=== PATIENT | female | born 1960 | race Two or more races ===

== ENCOUNTER 2016-08-27 17:14 | Emergency (ER) | payer MEDICARE, MEDICAID ==
[~2016-08-27] VITALS: Ht 152.4 cm; Wt 79.4 kg
[2016-08-27] MEDS ORDERED: EPINEPHrine HCL 1 MG/1 ML AMP SC ONE (19:30)
[2016-08-27] MEDS ORDERED: diphenhdrAMINE HCL 50 MG/1 ML VL IM ONE (19:30)
[2016-08-27 19:53] VITALS: BP 140/92
== END 2016-08-27 19:59 | disposition home or self-care (01) ==
LOC: ER 17:16
DX: T78.40XA Allergy, unspecified, initial encounter (principal); X58.XXXA Exposure to other specified factors, initial encounter
CPT/HCPCS: 96372; 99284; J0171; J1200

== ENCOUNTER 2017-05-06 08:38 | Emergency (ER) | payer MEDICARE, MEDICAID ==
[~2017-05-06] VITALS: Ht 149.9 cm; Wt 78.0 kg
[2017-05-06 09:30] VITALS: BP 143/92
[2017-05-06] MEDS ORDERED: cefTRIAXone SOD 1,000 MG VL IM ONE (10:15)
== END 2017-05-06 10:33 | disposition home or self-care (01) ==
LOC: ER 08:38
DX: S60.361A Insect bite (nonvenomous) of right thumb, initial encounter (principal); T81.4XXA Infection following a procedure, initial encounter; L08.9 Local infection of the skin and subcutaneous tissue, unspecified; W57.XXXA Bitten or stung by nonvenomous insect and other nonvenomous arthropods, initial encounter; Y93.89 Activity, other specified; Y99.8 Other external cause status; Y92.89 Other specified places as the place of occurrence of the external cause
CPT/HCPCS: 96372; 99283; J0696

== ENCOUNTER 2020-02-11 11:33 | Emergency (ER) | payer OTHER, MEDICAID ==
[~2020-02-11] VITALS: Ht 149.9 cm; Wt 71.7 kg
[2020-02-11 15:57] VITALS: BP 128/87
[2020-02-11] MEDS ORDERED: cefTRIAXone SOD 1,000 MG VL IM ONE (17:00)
[2020-02-11] MEDS ORDERED: LIDOCAINE 1% HCL (LOCAL ANESTH.) INJ 20ML MDV IJ ONE (17:00)
[2020-02-11] MEDS ORDERED: ACETAMINOPHEN/CODEINE#3 (300/30mg) TAB PO ONE (17:00)
[2020-02-11] MEDS ORDERED: TETANUS-DIPTH-ACEL PERTUSSIS 0.5ML SYR Tdap IM ONE (17:00)
== END 2020-02-11 18:18 | disposition home or self-care (01) ==
LOC: ER 11:33
DX: S01.511A Laceration without foreign body of lip, initial encounter (principal); S01.21XA Laceration without foreign body of nose, initial encounter; S01.81XA Laceration without foreign body of other part of head, initial encounter; W54.0XXA Bitten by dog, initial encounter; Y93.89 Activity, other specified; Y92.89 Other specified places as the place of occurrence of the external cause; Y99.8 Other external cause status
CPT/HCPCS: 12011; 90471; 90715; 96372; 99284; J0696; J2001

== ENCOUNTER 2020-02-18 10:49 | Emergency (ER) | payer OTHER, MEDICAID ==
[~2020-02-18] VITALS: Ht 149.9 cm; Wt 72.6 kg
[2020-02-18 12:33] VITALS: BP 135/91
== END 2020-02-18 12:40 | disposition home or self-care (01) ==
LOC: ER 10:49
DX: S01.551D Open bite of lip, subsequent encounter (principal); W54.0XXD Bitten by dog, subsequent encounter; F17.210 Nicotine dependence, cigarettes, uncomplicated

== ENCOUNTER 2021-11-17 12:16 | Inpatient (IN) | payer OTHER ==
[~2021-11-17] VITALS: Ht 144.8 cm; Wt 63.0 kg
[2021-11-17] MEDS ORDERED: ALUM & MAG HYDROX-SIMETH LIQ(MAALOX) 30 ML PO ONE (12:45)
[2021-11-17] MEDS ORDERED: LIDOCAINE VISCOUS 2% 15ML UD PO ONE (12:45)
[2021-11-17] MEDS ORDERED: ONDANSETRON HCL 4 MG/2 ML VIAL IV ONE ×2 (12:45→18:15)
[2021-11-17] MEDS ORDERED: FAMOTIDINE (10MG/ML) 2ML VL IV ONE (12:45)
[2021-11-17 13:43] LABS: Basophils # (auto) 0 10 ^3/uL (0-0.2); Basophils % (auto) 0.3 % (0.0-2.0); Eosinophils # (auto) 0 10 ^3/uL (0-0.8); Hematocrit 39.9 % (36.0-46.0); Hemoglobin 13.7 g/dL (12.2-16.2); Lymphocytes # (auto) 0.7 10 ^3/uL (0.4-5.4); Lymphocytes % (auto) 8.6 % (10.0-50.0); Mean Corpuscular Hemoglobin 33.9 pg (28.0-32.0); Mean Corpuscular Hgb Conc. 34.3 g/dL (32.0-36.0); Mean Corpuscular Volume 98.8 fL (80.0-100.0); Monocytes # (auto) 0.2 10 ^3/uL (0-1.3); Monocytes % (auto) 2.4 % (0.0-12.0); Neutrophils # (auto) 6.9 10 ^3/uL (1.6-8.6); Neutrophils % (auto) 88.7 % (37.0-80.0); Red Blood Cells 4.03 10^6/uL (4.0-5.20); Red Cell Distribution Width 14.3 % (11.8-14.3); White Blood Cell 7.8 10^3/uL (4.4-10.8)
[2021-11-17 14:04] LABS: BUN/Creatinine Ratio 13.1; Calcium 9.4 mg/dL (8.5-10.1); Magnesium 1.9 mg/dL (1.6-2.6); Potassium 3.9 mmol/L (3.5-5.1)
[2021-11-17 14:06] LABS: Bilirubin, Total 0.4 mg/dL (0.2-1.0); Total Protein 8.5 g/dL (6.4-8.2)
[2021-11-17] MEDS ORDERED: ASPirin 81 mg TAB PO ONE (14:30)
[2021-11-17] MEDS ORDERED: METOCLOPRAMIDE HCL 5MG/ml INJ 2ml VIAL IV ONE (15:30)
[2021-11-17] MEDS ORDERED: MORPHINE SULFATE INJECTION 2 MG/ML SYRG IV ONE (15:30)
[2021-11-17] MEDS ORDERED: ERYTHROMYCIN LACTOBIONATE 250 MG in SODIUM CHL 0.9% 100 ML IV ONE (17:45)
[2021-11-17] MEDS ORDERED: LORazepam 2MG/ML-1ML VIAL IV ONE (17:45)
[2021-11-17] MEDS ORDERED: NITROGLYCERIN 0.4 MG SL TAB SL PRN (18:15)
[2021-11-17] MEDS ORDERED: ACETAMINOPHEN 325 MG TAB PO PRN (18:15)
[2021-11-17] MEDS ORDERED: MORPHINE SULFATE INJECTION 2 MG/ML SYRG IV PRN (18:15)
[2021-11-17] MEDS ORDERED: ONDANSETRON HCL 4 MG/2 ML VIAL IV PRN (18:15)
[2021-11-17 18:28] LABS: Urine Bacteria FEW /hpf (None Seen); Urine Blood TRACE /uL (Negative); Urine Mucus FEW (None Seen); Urine WBC 1 /hpf (0 - 5)
[2021-11-17 18:37] LABS: Urine Specific Gravity > 1.055 (1.001-1.035)
[2021-11-17] MEDS: SODIUM CHLORIDE 0.9% 1,000 ML IV SCH (18:52)
[2021-11-17] MEDS ORDERED: MORPHINE SULFATE 4 MG/ML SYR/VIAL IV PRN (22:15)
[2021-11-17 23:00] VITALS: BP 143/93
[2021-11-18] MEDS ORDERED: LOSA-69 PO (02:01)
[2021-11-18] MEDS ORDERED: ERGO1CAP12 PO (02:01)
[2021-11-18] MEDS ORDERED: ALBU108A5 INH (02:01)
[2021-11-18] MEDS: SODIUM CHLORIDE 0.9% 1,000 ML IV SCH ×2 (04:15→15:23)
[2021-11-18] MEDS: HYDROcodone-ACET 5/325MG TAB PO PRN (04:45)
[2021-11-18 05:03] VITALS: BP 146/83
[2021-11-18 05:50] LABS: Basophils # (auto) 0 10 ^3/uL (0-0.2); Basophils % (auto) 0.5 % (0.0-2.0); Eosinophils # (auto) 0.1 10 ^3/uL (0-0.8); Eosinophils % (auto) 0.7 % (0.0-7.0); Hematocrit 36.7 % (36.0-46.0); Hemoglobin 12.6 g/dL (12.2-16.2); Lymphocytes # (auto) 2.3 10 ^3/uL (0.4-5.4); Lymphocytes % (auto) 29.6 % (10.0-50.0); Mean Corpuscular Hemoglobin 33.8 pg (28.0-32.0); Mean Corpuscular Hgb Conc. 34.2 g/dL (32.0-36.0); Mean Corpuscular Volume 98.8 fL (80.0-100.0); Monocytes # (auto) 0.6 10 ^3/uL (0-1.3); Monocytes % (auto) 7.4 % (0.0-12.0); Neutrophils # (auto) 4.8 10 ^3/uL (1.6-8.6); Neutrophils % (auto) 61.8 % (37.0-80.0); Red Blood Cells 3.71 10^6/uL (4.0-5.20); Red Cell Distribution Width 14.2 % (11.8-14.3); White Blood Cell 7.8 10^3/uL (4.4-10.8)
[2021-11-18 06:05] LABS: Albumin 3.6 g/dL (3.4-5.0); Calcium 9.1 mg/dL (8.5-10.1); Potassium 3.5 mmol/L (3.5-5.1)
[2021-11-18 06:08] LABS: BUN/Creatinine Ratio 20.8; Bilirubin, Total 0.5 mg/dL (0.2-1.0); Total Protein 7.5 g/dL (6.4-8.2)
[2021-11-18 08:41] VITALS: BP 113/65
[2021-11-18] MEDS ORDERED: GASTROGRAFIN 120 ML SOL ONE (09:21)
[2021-11-18] MEDS: ENOXAPARIN SOD 40 MG/0.4 ML SYRINGE SC SCH (10:29)
[2021-11-18 12:47] VITALS: BP 122/70
[2021-11-18 16:44] VITALS: BP 138/70
[2021-11-18] MEDS: PANTOPRAZOLE 40 MG/10 ML VIAL INJ IV SCH (20:01)
[2021-11-18 21:10] VITALS: BP 143/76
[2021-11-19] MEDS: SODIUM CHLORIDE 0.9% 1,000 ML IV SCH ×2 (02:22→09:34)
[2021-11-19] MEDS: HYDROcodone-ACET 5/325MG TAB PO PRN ×2 (02:27→09:34)
[2021-11-19 05:00] VITALS: BP 134/72
[2021-11-19 05:50] LABS: Basophils # (auto) 0 10 ^3/uL (0-0.2); Basophils % (auto) 0.7 % (0.0-2.0); Eosinophils # (auto) 0.1 10 ^3/uL (0-0.8); Eosinophils % (auto) 2.1 % (0.0-7.0); Hematocrit 34.3 % (36.0-46.0); Hemoglobin 11.8 g/dL (12.2-16.2); Lymphocytes # (auto) 2.3 10 ^3/uL (0.4-5.4); Lymphocytes % (auto) 39.1 % (10.0-50.0); Mean Corpuscular Hgb Conc. 34.2 g/dL (32.0-36.0); Mean Corpuscular Volume 99.2 fL (80.0-100.0); Monocytes # (auto) 0.4 10 ^3/uL (0-1.3); Monocytes % (auto) 6.4 % (0.0-12.0); Neutrophils # (auto) 3.1 10 ^3/uL (1.6-8.6); Neutrophils % (auto) 51.7 % (37.0-80.0); Nucleated Red Blood Cells % 0.1 %; Red Blood Cells 3.46 10^6/uL (4.0-5.20)
[2021-11-19 06:22] LABS: Albumin 3.3 g/dL (3.4-5.0); BUN/Creatinine Ratio 22.8; Calcium 8.6 mg/dL (8.5-10.1); Potassium 3.6 mmol/L (3.5-5.1)
[2021-11-19 06:25] LABS: Bilirubin, Total 0.6 mg/dL (0.2-1.0); Total Protein 6.7 g/dL (6.4-8.2)
[2021-11-19 09:00] VITALS: BP 140/76
[2021-11-19] MEDS: PANTOPRAZOLE 40 MG/10 ML VIAL INJ IV SCH (09:33)
[2021-11-19] MEDS: ENOXAPARIN SOD 40 MG/0.4 ML SYRINGE SC SCH (09:34)
[2021-11-19] MEDS ORDERED: ONDA-144 PO (10:23)
[2021-11-19] MEDS ORDERED: ALBU108A5 INH (10:23)
[2021-11-19] MEDS ORDERED: PANT40TA2 PO (10:24)
[2021-11-19] MEDS ORDERED: TRAM50TA2 PO (11:08)
[2021-11-19 13:00] VITALS: BP 158/79
[2021-11-19 17:00] VITALS: BP 138/77
[2021-11-19 17:42] VITALS: BP 138/77
== END 2021-11-19 18:41 | disposition home health service (06) | DRG 390 ==
LOC: ER 12:19 → TELE 18:12 → TELE-WESTW 21:00
PROVIDERS: ADMIT Internal Medicine; ATTEND Hospitalist
DX: K56.7 Ileus, unspecified (principal); E86.0 Dehydration; E66.9 Obesity, unspecified; F17.210 Nicotine dependence, cigarettes, uncomplicated; I10 Essential (primary) hypertension; M19.90 Unspecified osteoarthritis, unspecified site; Z20.822 Contact with and (suspected) exposure to COVID-19; Z82.49 Family history of ischemic heart disease and other diseases of the circulatory system; Z90.49 Acquired absence of other specified parts of digestive tract; Z68.30 Body mass index [BMI] 30.0-30.9, adult
CPT/HCPCS: 36415; 71045; 74177; 74250; 80053; 81001; 83605; 83690; 83735; 84484; 85025; 93005; 93306; 96361; 96374; 96375; 96376; 99291; C9113; G0378; J2405; J3490